=== PATIENT | male | born 1950 | race Caucasian/White ===

== ENCOUNTER 2018-11-02 17:19 | Emergency (ER) | payer MEDICARE ==
--- NOTE | 2018-11-02 18:00 | EDM.PDOC ---
ED HPI GENERAL MEDICAL PROBLEM - General Chief Complaint: Cardiovascular Problem Stated Complaint: magda cardia, fatigue, pale Time Seen by Provider: 11/02/18 17:28 Source of Information: Reports: Patient, EMS, Other ([facility] staff) History Limitations: Reports: No Limitations - History of Present Illness INITIAL COMMENTS - FREE TEXT/NARRATIVE: Patient [facility]. [facility] heart [facility] in 50s. Noted on routine vital sign check this afternoon to be in 30s. In hindsight, patient recalls feeling much more tired than usual today. [place] lightheaded when working out earlier today. Episode of nausea earlier. Overall feels fine now but admits he feels better when laying down/resting. No history of similar episodes. No report of recent medication changes. No other recent health changes. Patient denies HEENT changes. No SOB/chest pain. No vomiting/bowel changes/UTI complaints. No other pain complaints such as abdominal or limb pain. No fevers/chills. No neuro changes/headache/weakness/numbness. - Related Data Allergies Allergy/AdvReac Type Severity Reaction Status Date / Time fluphenazine Allergy Cannot Verified 11/02/18 19:35 Remember lisinopril Allergy Cannot Verified 11/02/18 19:35 Remember decanoate Allergy Cannot Uncoded 11/02/18 19:35 Remember Past Medical History HEENT History: Reports: Cataract, Impaired Vision Cardiovascular History: Reports: Blood Clots/VTE/DVT, High Cholesterol Genitourinary History: Reports: Chronic Renal Insuffiency Musculoskeletal History: Reports: Osteoarthritis Neurological History: Reports: Other (See Below) (Dyskenesia as side effect of medications) Psychiatric History: Reports: Bipolar, Other (See Below) (personality disorder, schizoaffective disorder) Endocrine/Metabolic History: Reports: Diabetes, Type II, Hypothyroidism Hematologic History: Reports: Anemia, Other (See Below) (Hyperkalemia) Social & Family History - Tobacco Use Smoking Status *Q: Former Smoker - Alcohol Use Alcohol Use History: No - Recreational Drug Use Recreational Drug Use: No Drug Use in Last 12 Months: No - Living Situation & Occupation Living situation: Reports: Other ([facility]) ED ROS GENERAL - Review of Systems Review Of Systems: ROS reveals no pertinent complaints other than HPI. ED EXAM, GENERAL - Physical Exam Exam: See Below Exam Limited By: No Limitations General Appearance: Alert, WD/WN, No Apparent Distress Eye Exam: Bilateral Eye: EOMI, PERRL Ears: Normal External Exam Nose: No: Nasal Deformity, Nasal Swelling, Nasal Drainage Throat/Mouth: Normal Lips, Normal Voice, No Airway Compromise Head: Normocephalic, Sinus Tenderness Neck: Normal Inspection, Supple, Non-Tender, Full Range of Motion Respiratory/Chest: No Respiratory Distress, Lungs Clear, Normal Breath Sounds, No Accessory Muscle Use, Chest Non-Tender Cardiovascular: No Edema, No Murmur, Bradycardia Peripheral Pulses: 2+: Radial (L), Radial (R) GI/Abdominal: Normal Bowel Sounds, Soft, Non-Tender, No Distention (Male) Exam: Deferred Rectal (Males) Exam: Deferred Back Exam: Normal Inspection Extremities: Normal Inspection, Normal Range of Motion, Non-Tender, No Pedal Edema, Normal Capillary Refill Neurological: Alert, Oriented, Normal Cognition, No Motor/Sensory Deficits Psychiatric: Normal Affect, Normal Mood Skin Exam: Warm, Dry, Intact, Normal Color EKG INTERPRETATION EKG Date: 11/02/18 Time: 17:26 Rhythm: Other (sinus bradycardia, intermittent PVCs) [place]: Normal P-Wave: Present QRS: Normal ST-T: Other (ST elevation noted V1-V3, consider early repolarization) QT: Normal Comparison: NA - No Prior EKG Course - Vital Signs Last Recorded V/S: Last Vital Signs Temp 36.6 C 11/02/18 19:40 Pulse 41 L 11/02/18 19:40 Resp 19 11/02/18 20:00 BP 162/100 H 11/02/18 20:00 Pulse Ox 100 11/02/18 20:00 - Orders/Labs/Meds Orders: Active Orders 24 hr Category Date Time Status EKG Documentation Completion [RC] ASDIRECTED Care 11/02/18 17:34 Active Chest 1V Frontal [CR] Stat Exams 11/02/18 17:34 Taken Labs: Laboratory Tests 11/02/18 11/02/18 11/02/18 Range/Units 17:33 17:33 17:34 WBC 8.0 (4.0-10.2) K/uL RBC 3.95 L (4.33-5.41) M/uL Hgb 12.2 L (13.1-16.8) g/dL Hct 36.6 L (39.0-49.0) % MCV 92.7 (84.0-98.0) fL MCH 30.9 (28.2-33.3) pg MCHC 33.3 (31.7-36.0) g/dL RDW 13.8 (11.2-14.1) % Plt Count 186 (150-350) K/uL Neut % (Auto) 68.5 (45.0-80.0) % Lymph % (Auto) 19.2 (10.0-50.0) % [place] % (Auto) 10.0 (2.0-14.0) % Eos % (Auto) 1.7 (0.0-5.0) % Baso % (Auto) 0.6 (0.0-2.0) % Neut # (Auto) 5.51 (1.40-7.00) K/uL Lymph # (Auto) 1.54 (0.50-3.50) K/uL [place] # (Auto) 0.80 (0.00-1.00) K/uL Eos # (Auto) 0.14 (0.00-0.50) K/uL Baso # (Auto) 0.05 (0.00-0.20) K/uL PT 20.7 H (9.5-12.0) SEC INR 1.9 Sodium 131 L D (136-145) mmol/L Potassium 4.3 (3.5-5.1) mmol/L Chloride 99 (98-107) mmol/L Carbon Dioxide 24.6 (21.0-32.0) mmol/L BUN 34 H (7-18) mg/dL Creatinine 1.89 H (0.51-1.17) mg/dL Est Cr Clr Drug Dosing TNP Estimated GFR (MDRD) 36 mL/min Glucose 133 H (74-106) mg/dL Calcium 9.0 (8.5-10.1) mg/dL Magnesium 2.0 (1.8-2.4) mg/dL Total Bilirubin 0.2 (0.2-1.0) mg/dL AST 62 H (15-37) U/L ALT 47 (12-78) U/L Alkaline Phosphatase 83 (46-116) IU/L Creatine Kinase 266 (26-308) U/L Creatine Kinase Index 3.0 H (0.0-2.5) % CK-MB (CK-2) 8.00 H* (0.00-3.60) ng/mL Troponin I 0.020 (0.000-0.056) ng/mL Total Protein 6.4 (6.4-8.2) g/dL Albumin 3.6 (3.4-5.0) g/dL TSH, Ultra Sensitive 2.559 (0.358-3.740) mIU/mL Carbamazepine 8 (4-12) ug/mL - Radiology Interpretation Free Text/Narrative:: No acute changes noted on chest xray. Radiology review pending - Re-Assessments/Exams Free Text/Narrative Re-Assessment/Exam: 11/02/18 18:33 Patient remained stable and comfortable in ER bed. EKG showed marked sinus bradycardia with intermittent PVCs. Chest film showed now acute changes. Labs: CBC overall unremarkable, mild anemia noted. INR 1.9 Troponin normal. CKMB elevated at 8, with index of 3 Creatinine 1.89, BUN 34 (patient has history of chronic renal insufficiency) AST 62 TSH within normal range Tegretol level was within normal range. Unable to check [place] level as it is a send out. One side effect of [place] is severe bradycardia. It was felt appropriate to transfer the patient so that a [place] level could be obtained and if needed, pacemaker placement performed. Call placed to [facility] in [place]. decline patient transfer to their facility and gave permission to send patient to [facility]. [facility] contacted and patient discussed with . He accepted the patient. Prolonged stay in ER due to waiting for EMS availability as another patient was transferred just prior to this patient's arrival. Monitored continuously during stay. Stable and without complaint. Patient then transferred by EMS to [facility]. Departure - Departure Time of Disposition: 20:15 Disposition: DC/Tfer to [facility] 02 Reason for Transfer *Q: Other Condition: Fair Clinical Impression: Bradycardia, sinus, persistent, severe, [place] use Referrals: PCP,None [Primary Care Provider] - Forms: ED Department Discharge - My Orders Last 24 Hours: My Active Orders 11/02/18 17:34 EKG Documentation Completion [RC] ASDIRECTED Chest 1V Frontal [CR] Stat - Assessment/Plan Last 24 Hours: My Active Orders 03/22/19 17:34 EKG Documentation Completion [RC] ASDIRECTED Chest 1V Frontal [CR] Stat
[2018-11-02 18:01] LABS: CHLORIDE,CL 99 mmol/L (98-107); SODIUM,NA 131 mmol/L (136-145)
== END 2018-11-02 20:25 ==
LOC: LL.ED 17:19
DX: R00.1 Bradycardia, unspecified (principal); F19.90 Other psychoactive substance use, unspecified, uncomplicated; E78.00 Pure hypercholesterolemia, unspecified; E11.22 Type 2 diabetes mellitus with diabetic chronic kidney disease; F31.9 Bipolar disorder, unspecified; E03.9 Hypothyroidism, unspecified; Z87.891 Personal history of nicotine dependence; Z88.8 Allergy status to other drugs, medicaments and biological substances
CPT/HCPCS: 36415; 71045; 80053; 80156; 82550; 82553; 83735; 84443; 84484; 85025; 85610; 93005; 99285-25

== ENCOUNTER 2018-11-18 11:23 | Emergency (ER) | payer MEDICARE ==
[2018-11-18] MEDS ORDERED: Sodium Chloride 0.9% 10 ML Syringe FLUSH PRN (11:47)
--- NOTE | 2018-11-18 12:14 | EDM.PDOC ---
ED HPI GENERAL MEDICAL PROBLEM - General Chief Complaint: Cardiovascular Problem Stated Complaint: Symptomatic bradycardia 30s, dizziness Time Seen by Provider: 11/18/18 11:46 Source of Information: Reports: Patient History Limitations: Reports: No Limitations - History of Present Illness INITIAL COMMENTS - FREE TEXT/NARRATIVE: Patient returns to ER with complaint of bradycardia, near-syncopal episodes, light headed feeling. Seen 11/02/18 for same issue. Was worked up extensively at [facility] but per patient symptoms appeared to have improved and he did not receive a pacemaker. Since discharge back to the [facility] he has continued to have periodic similar feelings, but did not report them to anyone. No new changes per patient. No SOB. Vital signs stable otherwise. - Related Data Allergies Allergy/AdvReac Type Severity Reaction Status Date / Time fluphenazine Allergy Cannot Verified 11/18/18 11:24 Remember lisinopril Allergy Cannot Verified 11/18/18 11:24 Remember decanoate Allergy Cannot Uncoded 11/18/18 11:24 Remember Home Meds: Home Meds Acetaminophen 1,000 mg PO BID 11/18/18 [History] Acetaminophen 650 mg PO Q6H PRN 11/18/18 [History] Cholecalciferol (Vitamin D3) [Vitamin D3] 2,000 unit PO DAILY@0711/18/18 [ History] Docusate Sodium [Colace] 200 mg PO BID 11/18/18 [History] Insulin Glarg,Human.Rec.Analog [Lantus] 18 units PO DAILY@1600 11/18/18 [History ] Levothyroxine Sodium [Synthroid] 175 mcg PO DAILY@0700 11/18/18 [History] [place] Carbonate [Lithobid] 300 mg PO BID 11/18/18 [History] Methyl Salicylate/Menthol [Muscle Rub Cream] 1 applic TOP ASDIRECTED PRN [History] Polyethylene Glycol 3350 17 gm PO DAILY@0711/18/18 [History] QUEtiapine Fumarate [Quetiapine Fumarate] 300 mg PO DAILY@189911/18/18 [History ] Simvastatin 20 mg PO BEDTIME 11/18/18 [History] Warfarin [Coumadin] 2 mg PO TH@189911/18/18 [History] Warfarin [Coumadin] 10 mg PO DAILY@189911/18/18 [History] amLODIPine [Norvasc] 10 mg PO DAILY@0700 11/18/18 [History] carBAMazepine [Carbamazepine] 400 mg PO BID 11/18/18 [History] cloNIDine [Catapres] 0.1 mg PO BID 11/18/18 [History] diphenhydrAMINE/Zinc Acetate [Banophen Anti-Itch 2%] 1 applic TOP BID PRN [History] hydrALAZINE [Apresoline] 10 mg PO TID 11/18/18 [History] Past Medical History HEENT History: Reports: Cataract, Impaired Vision Cardiovascular History: Reports: Blood Clots/VTE/DVT, High Cholesterol, Hypertension, Other (See Below) Other Cardiovascular History: Symptomatic bradycardia Gastrointestinal History: Reports: Chronic Constipation Genitourinary History: Reports: Chronic Renal Insuffiency Musculoskeletal History: Reports: Osteoarthritis Neurological History: Reports: Other (See Below) Psychiatric History: Reports: Bipolar, Other (See Below) Endocrine/Metabolic History: Reports: Diabetes, Type II, Hypothyroidism Hematologic History: Reports: Anemia, Other (See Below) - Past Surgical History GI Surgical History: Reports: Appendectomy Social & Family History - Tobacco Use Smoking Status *Q: Former Smoker Used Tobacco, but Quit: Yes Month/Year Tobacco Last Used: 0/0 - Caffeine Use Caffeine Use: Reports: Coffee - Recreational Drug Use Recreational Drug Use: No - Living Situation & Occupation Living situation: Reports: Other ([facility]) ED ROS GENERAL - Review of Systems Review Of Systems: See Below Constitutional: Reports: Weakness, Fatigue. Denies: Fever, Diaphoresis HEENT: Reports: No Symptoms Respiratory: Reports: No Symptoms. Denies: Shortness of Breath Cardiovascular: Reports: Lightheadedness. Denies: Chest Pain, Palpitations GI/Abdominal: Reports: No Symptoms : Reports: No Symptoms Musculoskeletal: Reports: No Symptoms Skin: Reports: No Symptoms Neurological: Reports: Dizziness, Syncope (feeling like he might pass out at times, but no actual syncope). Denies: Confusion, Headache, Change in Speech Psychiatric: Reports: No Symptoms Hematologic/Lymphatic: Reports: No Symptoms ED EXAM, GENERAL - Physical Exam Exam: See Below Exam Limited By: No Limitations General Appearance: Alert, WD/WN, No Apparent Distress Eye Exam: Bilateral Eye: EOMI, PERRL Ears: Normal External Exam Nose: No: Nasal Deformity, Nasal Swelling, Nasal Drainage Throat/Mouth: Normal Lips, Normal Voice, No Airway Compromise Head: Atraumatic, Normocephalic Neck: Supple, Non-Tender, Full Range of Motion Respiratory/Chest: No Respiratory Distress, Lungs Clear, Normal Breath Sounds, No Accessory Muscle Use Cardiovascular: No Murmur, Bradycardia Peripheral Pulses: 2+: Radial (L), Radial (R) GI/Abdominal: Soft, Non-Tender (Male) Exam: Deferred Rectal (Males) Exam: Deferred Back Exam: No: Muscle Spasm Extremities: Normal Capillary Refill Neurological: Alert, Oriented, Normal Cognition, No Motor/Sensory Deficits Psychiatric: Normal Affect, Normal Mood Skin Exam: Warm, Dry, Intact, Normal Color EKG INTERPRETATION EKG Date: 11/18/18 Time: 11:23 Rhythm: Other (bradycardia) Rate (Beats/Min): 46 [place]: Normal P-Wave: Variable QRS: Other (intraventricular conduction delay noted.) ST-T: Other (No obvious changes suggestive of ischemia) QT: Normal Comparison: No Change EKG Interpretation Comments: PVCs noted Course - Vital Signs Last Recorded V/S: Last Vital Signs Temp 36.6 C 11/18/18 11:26 Pulse 36 L 11/18/18 11:26 Resp 18 11/18/18 13:45 BP 166/76 H 11/18/18 13:41 Pulse Ox 98 11/18/18 13:45 - Orders/Labs/Meds Orders: Active Orders 24 hr Category Date Time Status Sodium Chloride 0.9% [Normal Saline] 1,000 ml Med 11/18/18 12:53 Active IV .BOLUS Sodium Chloride 0.9% [Normal Saline] 1,000 ml Med 11/18/18 14:15 Active IV ASDIRECTED Sodium Chloride 0.9% [Saline Flush] Med 11/18/18 11:47 Active 10 ml FLUSH ASDIRECTED PRN Saline Lock Insert [OM.PC] Stat Oth 11/18/18 11:47 Ordered Medication Orders Sodium Chloride (Normal Saline) 1,000 mls @ 250 mls/hr IV .BOLUS ONE Stop: 11/18/18 16:52 Last Admin: 11/18/18 14:13 Dose: Sodium Chloride (Normal Saline) 1,000 mls @ 250 mls/hr IV ASDIRECTED ESTELITA Last Admin: 11/18/18 14:23 Dose: 250 mls/hr Sodium Chloride (Saline Flush) 10 ml FLUSH ASDIRECTED PRN PRN Reason: Keep Vein Open Labs: Laboratory Tests 11/18/18 11/18/18 Range/Units 11:50 11:50 WBC 8.6 (4.0-10.2) K/uL RBC 4.23 L (4.33-5.41) M/uL Hgb 13.1 (13.1-16.8) g/dL Hct 39.5 (39.0-49.0) % MCV 93.4 (84.0-98.0) fL MCH 31.0 (28.2-33.3) pg MCHC 33.2 (31.7-36.0) g/dL RDW 13.6 (11.2-14.1) % Plt Count 199 (150-350) K/uL Neut % (Auto) 79.6 (45.0-80.0) % Lymph % (Auto) 11.5 (10.0-50.0) % [place] % (Auto) 7.5 (2.0-14.0) % Eos % (Auto) 0.8 (0.0-5.0) % Baso % (Auto) 0.6 (0.0-2.0) % Neut # (Auto) 6.81 (1.40-7.00) K/uL Lymph # (Auto) 0.98 (0.50-3.50) K/uL [place] # (Auto) 0.64 (0.00-1.00) K/uL Eos # (Auto) 0.07 (0.00-0.50) K/uL Baso # (Auto) 0.05 (0.00-0.20) K/uL Sodium 136 (136-145) mmol/L Potassium 5.0 (3.5-5.1) mmol/L Chloride 104 (98-107) mmol/L Carbon Dioxide 23.7 (21.0-32.0) mmol/L BUN 35 H (7-18) mg/dL Creatinine 2.05 H (0.51-1.17) mg/dL Est Cr Clr Drug Dosing 35.61 mL/min Estimated GFR (MDRD) 32 mL/min Glucose 159 H (74-106) mg/dL Calcium 9.1 (8.5-10.1) mg/dL Magnesium 2.2 (1.8-2.4) mg/dL Total Bilirubin 0.4 (0.2-1.0) mg/dL AST 45 H (15-37) U/L ALT 32 (12-78) U/L Alkaline Phosphatase 81 (46-116) IU/L Troponin I 0.000 (0.000-0.056) ng/mL Total Protein 6.9 (6.4-8.2) g/dL Albumin 3.8 (3.4-5.0) g/dL Meds: Medications Generic Name Dose Route Start Last Admin Trade Name Freq PRN Reason Stop Dose Admin Sodium Chloride 1,000 mls @ 250 mls/hr 11/18/18 12:53 11/18/18 14:13 Normal Saline IV 11/18/18 16:52 Not Given .BOLUS ONE Sodium Chloride 1,000 mls @ 250 mls/hr 11/18/18 14:15 11/18/18 14:23 Normal Saline IV 250 mls/hr ASDIRECTED ESTELITA Administration Sodium Chloride 10 ml 11/18/18 11:47 Saline Flush FLUSH ASDIRECTED PRN Keep Vein Open - Re-Assessments/Exams Free Text/Narrative Re-Assessment/Exam: 11/18/18 12:34 Call placed to [facility]. Same presentation as last month. Discussed patient with from Cardiology and from Hospitalist service. They accepted the patient for transfer for further evaluation and likely pacemaker placement. [facility] had also been contacted (Dr.Muraz BELLE) and declined patient's admission to their facility as they would be unable to provide similar services over the weekend. Patient remained stable throughout stay. EMS transfer to [facility] arranged. Departure - Departure Time of Disposition: 14:00 Disposition: DC/Tfer to Acute Hospital 02 Reason for Transfer *Q: Other Condition: Fair Clinical Impression: Bradycardia, sinus, persistent, severe Referrals: Giselle Huff MD [Primary Care Provider] - Forms: ED Department Discharge - My Orders Last 24 Hours: My Active Orders 11/18/18 11:47 Sodium Chloride 0.9% [Saline Flush] 10 ml FLUSH ASDIRECTED PRN Saline Lock Insert [OM.PC] Stat 11/18/18 12:53 Sodium Chloride 0.9% [Normal Saline] 1,000 ml IV .BOLUS 11/18/18 14:15 Sodium Chloride 0.9% [Normal Saline] 1,000 ml IV ASDIRECTED - Assessment/Plan Last 24 Hours: My Active Orders 11/18/18 11:47 Sodium Chloride 0.9% [Saline Flush] 10 ml FLUSH ASDIRECTED PRN Saline Lock Insert [OM.PC] Stat 11/18/18 12:53 Sodium Chloride 0.9% [Normal Saline] 1,000 ml IV .BOLUS 11/18/18 14:15 Sodium Chloride 0.9% [Normal Saline] 1,000 ml IV ASDIRECTED
[2018-11-18] MEDS ORDERED: Sodium Chloride 0.9% 1,000 ML IV ONE (12:53)
[2018-11-18] MEDS ORDERED: Sodium Chloride 0.9% 1,000 ML IV SCH (14:15)
== END 2018-11-18 14:30 ==
LOC: LL.ED 11:23
DX: R00.1 Bradycardia, unspecified (principal); E78.00 Pure hypercholesterolemia, unspecified; I12.9 Hypertensive chronic kidney disease with stage 1 through stage 4 chronic kidney disease, or unspecified chronic kidney disease; E11.22 Type 2 diabetes mellitus with diabetic chronic kidney disease; N18.9 Chronic kidney disease, unspecified; E03.9 Hypothyroidism, unspecified; Z87.891 Personal history of nicotine dependence; Z88.8 Allergy status to other drugs, medicaments and biological substances; Z79.899 Other long term (current) drug therapy; Z79.01 Long term (current) use of anticoagulants; Z79.4 Long term (current) use of insulin
CPT/HCPCS: 36415; 80053; 83735; 84484; 85025; 99285-25; J7030

== ENCOUNTER 2024-08-18 15:05 | Emergency (ER) | payer OTHER, MEDICARE ==
[2024-08-18 15:38] LABS: BASOPHILS ABSOLUTE AUTO 0.05 K/uL (0.00-0.20); BASOPHILS PERCENT AUTO 0.5 % (0.0-2.0); EOSINOPHILS ABSOLUTE AUTO 0.39 K/uL (0.00-0.50); HEMATOCRIT 37.8 % (39.0-49.0); HEMOGLOBIN 12.3 g/dL (13.1-16.8); IMMATURE GRAN ABSOLUTE AUTO 0.01 10^3/uL (0.00-0.04); IMMATURE GRAN PERCENT AUTO 0.1 % (0.0-0.4); LYMPHOCYTES ABSOLUTE AUTO 0.91 K/uL (0.50-3.50); LYMPHOCYTES PERCENT AUTO 9.3 % (10.0-50.0); MEAN CORPUSCULAR HEMOGLOBIN 31.9 pg (28.2-33.3); MEAN CORPUSCULAR HGB CONC 32.5 g/dL (31.7-36.0); MEAN CORPUSCULAR VOLUME 98.2 fL (84.0-98.0); MONOCYTES ABSOLUTE AUTO 0.59 K/uL (0.00-1.00); NEUTROPHILS ABSOLUTE AUTO 7.85 K/uL (1.40-7.00); NEUTROPHILS PERCENT AUTO 80.1 % (45.0-80.0); PLATELET COUNT,PLT 203 K/uL (150-350); RED BLOOD CELL COUNT 3.85 M/uL (4.33-5.41); RED CELL DISTRIBUTION WIDTH 12.6 % (11.2-14.1); WHITE BLOOD CELL COUNT,WBC 9.8 K/uL (4.0-10.2)
[2024-08-18 15:54] LABS: ALBUMIN 3.9 g/dL (3.4-5.0); BILIRUBIN TOTAL 0.3 mg/dL (0.2-1.0); CALCIUM 9.6 mg/dL (8.5-10.1); CARBON DIOXIDE,CO2 21.4 mmol/L (21.0-32.0); CREATININE 2.02 mg/dL (0.51-1.17); EST CRCL DRUG DOSING (CG) 33.13 mL/min; POTASSIUM,K 5.2 mmol/L (3.5-5.1); PROTEIN TOTAL,TP 6.7 g/dL (6.4-8.2)
[2024-08-18 15:55] LABS: ANION GAP 14.8 meq/L (7-15)
== END 2024-08-18 18:05 | disposition home or self-care (01) ==
LOC: LL.ED 15:05
DX: M71.22 Synovial cyst of popliteal space [Baker], left knee (principal); E87.5 Hyperkalemia; I12.9 Hypertensive chronic kidney disease with stage 1 through stage 4 chronic kidney disease, or unspecified chronic kidney disease; N18.9 Chronic kidney disease, unspecified; E78.00 Pure hypercholesterolemia, unspecified; E11.22 Type 2 diabetes mellitus with diabetic chronic kidney disease; E03.9 Hypothyroidism, unspecified; Z90.49 Acquired absence of other specified parts of digestive tract; Z79.4 Long term (current) use of insulin; Z79.899 Other long term (current) drug therapy; Z79.82 Long term (current) use of aspirin; Z79.1 Long term (current) use of non-steroidal anti-inflammatories (NSAID); Z79.890 Hormone replacement therapy; Z88.8 Allergy status to other drugs, medicaments and biological substances
CPT/HCPCS: 36415; 73700-LT; 80053; 85025; 85379; 99284